=== PATIENT | female | born 1980 | race Two or more races ===

== ENCOUNTER 2019-09-25 12:02 | Emergency (ER) | payer OTHER ==
[~2019-09-25] VITALS: Ht 167.6 cm; Wt 77.1 kg
[~2019-09-25 12:02] MED LIST: CEFADROXIL500 MG PO; FOLIC ACID0.4 MG; KETO10TA2 PO; METHOTREXATE; OSEL75CA PO; PREDNISONE5 MG/DOSE- PO; TRAMADOL HCL50 MG PO; TRIPLE ANTIBIOT15 GM TP
[2019-09-25] MEDS ORDERED: LIPITOR40 MG (12:39)
== END 2019-09-25 15:45 | disposition home or self-care (01) ==
LOC: ER 12:02
DX: J06.9 Acute upper respiratory infection, unspecified (principal)

== ENCOUNTER 2019-11-08 11:58 | Emergency (ER) | payer OTHER ==
[~2019-11-08] VITALS: Ht 170.2 cm; Wt 77.1 kg
[~2019-11-08 11:58] MED LIST changes: +LIPITOR40 MG
[2019-11-08] MEDS ORDERED: NEURONTIN300 MG PO (12:07)
== END 2019-11-08 15:27 | disposition home or self-care (01) ==
LOC: ER 11:58
DX: M54.5 Low back pain (principal); B96.0 Mycoplasma pneumoniae [M. pneumoniae] as the cause of diseases classified elsewhere